=== PATIENT | male | born 1980 | race Caucasian/White ===

== ENCOUNTER 2022-02-16 15:01 | Emergency (ER) | payer OTHER, SELFPAY ==
[2022-02-16 15:05] VITALS: BP 150/105; PULSE 84; RESP 14; TEMP 36.7
[2022-02-16 16:00] VITALS: RESP 18
--- NOTE | 2022-02-16 17:48 | ED.GENADULT ---
HPI - General Adult General Chief complaint: Unspecified Stated complaint: facial swelling Time Seen by Provider: 02/16/22 16:46 Source: patient Mode of arrival: ambulatory Limitations: no limitations History of Present Illness HPI narrative: This is a 41 year old male that presents to the ER for swelling to the right side of his face. Ongoing over the last week. Denies fever, cough, congestion, or dental pain. Related Data Allergies Allergy/AdvReac Type Severity Reaction Status Date / Time No Known Allergies Allergy Unverified 02/16/22 16:07 Review of Systems Review of Systems: CONSTITUTIONAL: Denies fever ENT: Denies congestion, sore throat RESPIRATORY: Denies cough All systems reviewed & are unremarkable except as noted in HPI and below PMFSH Past Medical History Medical History (Updated 02/16/22 @ 18:19 by Paz Gaston PA-C) No active medical problems Social History Social History (Updated 02/16/22 @ 17:52 by Paz Gaston PA-C) Substance use: never Exam Narrative: GENERAL: Well-appearing, well-nourished, and in no acute distress. HEAD: Normocephalic, atraumatic. EYES: EOMI. ENT: Nares clear, no rhinorrhea or epistaxis. Mucous membranes moist. Oropharynx without tonsillar hypertrophy exudate or other lesions. Bilateral TMs pearly crockett non-bulging. Poor dentition. Tooth #4 with associated dental abscess with area of erythema with central fluctuance. No trismus NECK: Supple. No adenopathy or masses. CHEST: Clear to auscultation. No respiratory distress. No wheezes rales or rhonchi HEART: Regular rate and rhythm. No murmur heard. Normal peripheral pulses. EXTREMITIES: Normal range of motion. No edema. SKIN: Warm, dry, no rash. NEURO: No focal deficits. Alert and oriented x3. PSYCH: Normal mood and affect Course Vital Signs Vital signs: Vital Signs Temperature 98.0 F 02/16/22 15:05 Pulse Rate 84 02/16/22 15:05 Respiratory Rate 14 02/16/22 15:05 Blood Pressure 150/105 H 02/16/22 15:05 Temperature 98.0 F 02/16/22 15:05 Pulse Rate 84 02/16/22 15:05 Respiratory Rate 18 02/16/22 16:00 Blood Pressure 150/105 H 02/16/22 15:05 Procedures Abscess I/D oral: Date of Incision: 02/16/22 Time of Incision: 18:17 Side (if applicable): right Local Anesthetic: none (Cetacaine) Technique: incised with #11 blade Packing used?: none I&D Results: Pus and Blood Medical Decision Making MDM Narrative Medical decision making narrative: Patient presents to the emergency department for dental abscess. He is afebrile and nontoxic-appearing. This was successfully drained. Patient will be started on oral antibiotics and was instructed to have close follow-up with his dentist. He was given warnings to return to the ER Vital Signs Vital Signs: Vital Signs Temperature 98.0 F 02/16/22 15:05 Pulse Rate 84 02/16/22 15:05 Respiratory Rate 14 02/16/22 15:05 Blood Pressure 150/105 H 02/16/22 15:05 Temperature 98.0 F 02/16/22 15:05 Pulse Rate 84 02/16/22 15:05 Respiratory Rate 18 02/16/22 16:00 Blood Pressure 150/105 H 02/16/22 15:05 Critical Care Time Critical Care Time Critical Care Time: No Discharge Plan Discharge Clinical Impression: Dental abscess Patient Disposition: Home, Self-Care Condition: Stable Instructions: Antibiotic Form, Dental Abscess (ED) Additional Instructions: Return if symptoms worsen or concerns: any increase in redness, swelling, pain or fever over 101 Take antibiotics as directed. Warm compresses 3 times a day for 30 minutes each Follow up with dentist in the next 2-3 days for re-evaluation Prescriptions: New amoxicillin-pot clavulanate 875-125 mg tablet 1 tablet PO Q12H 10 Days Qty: 20 RF: 0 Follow-up/Referrals: Harms,Santos Payne M.D. [Primary Care Provider] -
[2022-02-16] MEDS: BENZOCAINE/TETRACAINE SPRAY (*SP) 56 ML AEROSOL 1 SPRAY MUCOUS MEM (17:49)
[2022-02-16] MEDS: AMOXICILLIN/CLAVULANATE K 875-125 MG TAB 1 TABLET PO (18:30)
== END 2022-02-16 18:37 | disposition home or self-care (01) ==
PROVIDERS: Emergency Provider Emergency Medicine; PCP Family Medicine
DX: K04.7 Periapical abscess without sinus (principal)
CPT/HCPCS: 41800; 99283; A9270